=== PATIENT | male | born 1960 | race Caucasian/White ===

== ENCOUNTER 2021-09-02 12:00 | Day surgery (SDC) | payer OTHER ==
[2021-08-30 15:55] LABS: Absolute Lymphocytes (CBC) 2.6 K/uL (0.7-4.9); Hematocrit 43.3 % (39.6-49.0); Lymphocytes % 30.2 % (15.3-44.8); MPV 9.1 fL (7.6-11.3); RBC Red Blood Cell Count 4.82 M/uL (4.33-5.43)
[2021-08-30 16:12] LABS: Protime INR 1.11
--- NOTE | 2021-08-30 16:12 | RAD REPORT ---
EXAM DESCRIPTION: RAD - Chest Pa And Lat (2 Views) - 08/30/2021 3:33 pm CLINICAL HISTORY: Pre op pending heart cath COMPARISON: None TECHNIQUE: Frontal and lateral views of the chest were obtained. FINDINGS: The lungs are clear. No hilar mass or lymphadenopathy. Mild prominence of the interstitia l pattern is believed to be baseline. Heart size is normal and central vasculature is within normal l imits. No pleural effusion or pneumothorax seen. No acute bony finding noted. No aortic abnormalit y. IMPRESSION: No acute cardiopulmonary process.
[2021-08-30 16:14] LABS: Potassium 3.9 mmol/L (3.5-5.1)
[~2021-09-02 12:00] MED LIST: NA CHLORIDE 0.9% 500 ML ONE
[2021-09-02] MEDS ORDERED: HEPA 1000U/500MLS 2,000 UNIT/1,000 ML BAG IV ONE (13:19)
[2021-09-02] MEDS ORDERED: FENTANYL CITR 100 MCG/2 ML ONE (13:20)
[2021-09-02] MEDS ORDERED: HEPARIN 10,000 UNIT/10 ML VIAL IV ONE (13:21)
[2021-09-02] MEDS ORDERED: NITROGLYCERIN 100 MCG/ML SYR (for cath lab use only) IV ONE (13:21)
[2021-09-02] MEDS ORDERED: HEPARIN 5000 UNIT/ML 1 ML VIAL ONE (13:21)
[2021-09-02] MEDS ORDERED: ATROPINE SULF 1 MG/10 ML SYR IV ONE (13:21)
[2021-09-02] MEDS ORDERED: MIDAZOLAM HCL 2 MG/2 ML INJ ONE (13:21)
[2021-09-02] MEDS ORDERED: VERAPAMIL HCL 10 MG/4 ML VIAL IV ONE (13:21)
--- NOTE | 2021-09-02 13:40 | EKG ---
Test Date: 2021-08-30 Test Time: 15:18:05 Business Services Sales Representative: RIKY MEASUREMENT RESULTS: Intervals: Rate: 118 ND: 216 QRSD: 102 QT: 304 QTc: 426 [place]: P: -80 ND: 216 QRS: 14 T: 30 INTERPRETIVE STATEMENTS: Unusual P axis, possible ectopic atrial tachycardia with occasional and consecutive premature ventricular complexes and fusion Incomplete right bundle branch block Abnormal ECG No previous ECG available for comparison Electronically Signed On 09-02-21 13:37:15 CDT by Jesus Parnell
[2021-09-02] MEDS ORDERED: METOPROLOL TARTRATE 5 MG/5 ML INJ IV ONE (13:55)
--- NOTE | 2021-09-02 16:01 | OP ---
Date of Procedure: 09/02/2021 Surgeon: MELVIN FREEMAN Procedures Performed: 1.Selective coronary angiogram. 2.Left heart catheterization. Indication: 1.Abnormal stress test. 2.Shortness of breath. Access: Right radial artery 6-Peruvian closed with TR band. Complications: None. Bleeding: Less than 10 mL. Anesthesia: Total sedation time was 25 minutes, used Versed and fentanyl. Description Of Procedure: After risks, benefits, and alternatives were explained, the patient agreed to procedure and signed informed consent. The patient was brought into the cardiac catheterization laboratory, prepped and draped in the usual sterile fashion. Then, I accessed right radial artery us ing pediatric micropuncture kit. Gave fentanyl and Versed in incremental doses to achieve adequate m oderate sedation. Then, I took a Garrison catheter 5-Peruvian 4.0 into the aortic root over a J-wire, eng aged the left main and right coronary artery. Took standard views and the catheter was pushed over t he wire into the LV. LVEDP was measured and pullback did not record any gradient. Removed the derik ter and the sheath, placed TR band with good hemostasis. Findings: 1.Left main; large, normal. 2.LAD; large vessel, wraps around the apex and totally normal. Normal diagonal branches. 3.Left circumflex; moderate-sized, normal and codominant. 4.RCA; codominant, moderate-sized and normal. 5.Elevated LVEDP at 23 mmHg. 6.Brief episode of paroxysmal atrial fibrillation happened during the procedure and converted to sin us rhythm on its own. Conclusion: 1.Normal coronary arteries. 2.Elevated LVEDP at 23 mmHg. 3.Paroxysmal atrial fibrillation. Plan: We will start him on Toprol-XL 25 mg daily and baby aspirin. He will follow up with me in the office in 1-2 weeks and plan to start Lasix at that time if needed. SR/MODL Voice ID: [id number] Report ID: [id number]
[2021-09-02 16:13] VITALS: BP 120/73; O2SAT 98
== END 2021-09-02 16:45 | disposition home or self-care (01) ==
LOC: CCL 12:00
PROVIDERS: ATTEND Internal Medicine
DX: R94.39 Abnormal result of other cardiovascular function study (principal); I48.0 Paroxysmal atrial fibrillation; R06.02 Shortness of breath; I45.10 Unspecified right bundle-branch block; Z20.822 Contact with and (suspected) exposure to COVID-19
CPT/HCPCS: 93005; 85025; 80048; 36415; 85610; 85730; 71046; 93458; U0003; C1893; Q9966; J1644 ×2; J2250; J3010; J7040